=== PATIENT | male | born 1935 | race Caucasian/White ===

== ENCOUNTER 2016-10-29 09:00 | Outpatient (RCR) | payer OTHER ==
[2014-10-26 09:23] VITALS: BP 140/87
[~2016-10-29 09:00] MED LIST: ACLOVATE OINT 015 G1 TP; AMLODIPINE5 MG PO; AQUAZIDE H50 MG PO; ENALAPRIL20 MG PO; FLOMAX 0.40.4 MG/CAP PO; FLONASE0.05 MG/AC NS; LEVOTHYROXINE0.05 MG PO; LOTRISONE 0.05%1 CRE TP; MOBIC15 MG PO; TYLENOL 500MG500 MG PO; VESICARE PO; VIAGRA100 MG PO; VITAMIN B11000 MCG/M IM; [UNRECOGNIZED DRUG - OTHER] PO
[2016-12-28] MEDS ORDERED: ASPIR LOW81 MG PO (08:00)
[2016-12-28] MEDS ORDERED: ZEBETA10 MG PO (08:01)
[2016-12-28] MEDS ORDERED: COZAAR100 MG PO (08:03)
[2016-12-28] MEDS ORDERED: TIAZAC240 M1 PO (08:03)
[2016-12-28] MEDS ORDERED: CELEXA 20MG20 MG/TA1 PO (08:04)
[2016-12-28] MEDS ORDERED: HCTZ 25MG25 MG PO (08:05)
== END 2016-11-09 11:35 | disposition home or self-care (01) ==
LOC: PT 09:00
DX: M75.31 Calcific tendinitis of right shoulder (principal)

== ENCOUNTER → 2016-11-10 | Outpatient (CLI) | payer OTHER ==
[~2016-11-10] MED LIST changes: +ASPIR LOW81 MG PO; +CELEXA 20MG20 MG/TA1 PO; +COZAAR100 MG PO; +HCTZ 25MG25 MG PO; +TIAZAC240 M1 PO; +ZEBETA10 MG PO
== END ==
LOC: LAB 11:40
DX: G70.00 Myasthenia gravis without (acute) exacerbation (principal); R53.81 Other malaise

== ENCOUNTER → 2016-11-25 | Outpatient (CLI) | payer OTHER | LOC: LAB 09:28 | DX: N39.41 Urge incontinence (principal); N41.0 Acute prostatitis ==

== ENCOUNTER 2016-12-28 08:24 | Emergency (ER) | payer OTHER | END 2016-12-28 09:04 | disposition home or self-care (01) | LOC: ED 08:24 | DX: S00.81XA Abrasion of other part of head, initial encounter (principal); S61.411A Laceration without foreign body of right hand, initial encounter; W18.09XA Striking against other object with subsequent fall, initial encounter; Y92.018 Other place in single-family (private) house as the place of occurrence of the external cause | CPT/HCPCS: A4550 ==

== ENCOUNTER → 2017-01-04 | Day surgery (SDC) | payer OTHER | LOC: MSO 06:55 | DX: Z12.11 Encounter for screening for malignant neoplasm of colon (principal); K92.1 Melena; K29.60 Other gastritis without bleeding; D12.2 Benign neoplasm of ascending colon; K57.30 Diverticulosis of large intestine without perforation or abscess without bleeding; K44.9 Diaphragmatic hernia without obstruction or gangrene | CPT/HCPCS: 00810; A4649; J7120 ==

== ENCOUNTER → 2017-01-21 | Outpatient (CLI) | payer OTHER | LOC: RAD 09:49 | DX: R06.02 Shortness of breath (principal); G70.00 Myasthenia gravis without (acute) exacerbation | CPT/HCPCS: Q9967 ==

== ENCOUNTER → 2017-03-26 | Outpatient (CLI) | payer OTHER ==
[2016-12-28 09:11] VITALS: BP 144/81
== END ==
LOC: RAD 12:00
DX: N39.41 Urge incontinence (principal); R41.3 Other amnesia; R27.0 Ataxia, unspecified; R06.09 Other forms of dyspnea; I25.10 Atherosclerotic heart disease of native coronary artery without angina pectoris
CPT/HCPCS: Q9967

== ENCOUNTER → 2017-04-06 | Outpatient (CLI) | payer OTHER ==
[2016-12-28 09:11] VITALS: BP 144/81
== END ==
LOC: RAD 09:08
DX: Z13.820 Encounter for screening for osteoporosis (principal); M85.852 Other specified disorders of bone density and structure, left thigh; M85.851 Other specified disorders of bone density and structure, right thigh

== ENCOUNTER → 2017-04-16 | Outpatient (CLI) | payer OTHER ==
[2016-12-28 09:11] VITALS: BP 144/81
== END ==
LOC: LAB 11:38
DX: R20.2 Paresthesia of skin (principal)

== ENCOUNTER 2017-04-29 09:00 | Outpatient (RCR) | payer OTHER ==
[2016-12-28 09:11] VITALS: BP 144/81
== END 2017-04-29 14:00 | disposition home or self-care (01) ==
LOC: PT 09:00
DX: G60.9 Hereditary and idiopathic neuropathy, unspecified (principal); R29.6 Repeated falls; R26.89 Other abnormalities of gait and mobility; M62.81 Muscle weakness (generalized)

== ENCOUNTER → 2017-05-10 | Outpatient (CLI) | payer OTHER ==
[2016-12-28 09:11] VITALS: BP 144/81
== END ==
LOC: LAB 14:12
DX: N30.00 Acute cystitis without hematuria (principal)

== ENCOUNTER → 2017-11-09 | Outpatient (CLI) | payer OTHER ==
[2016-12-28 09:11] VITALS: BP 144/81
[2017-11-09 08:47] LABS: HEMATOCRIT 40.2 % (42.0-52.0); HEMOGLOBIN 12.4 g/dL (13.5-18.0); MEAN CELL VOLUME 90 fl (78-100); MEAN CORPUSCULAR HEMOGLOBIN 28 pg (27-31); MEAN CORPUSCULAR HGB CONC 31 g/dL (33-37); PLATELET COUNT 247 K/mm3 (130-400); RED BLOOD COUNT 4.49 M/mm3 (4.20-5.60); RED CELL DISTRIBUTION WIDTH 14.9 % (11.5-14.5); WHITE BLOOD COUNT 5.7 K/mm3 (4.8-10.8)
[2017-11-09 09:11] LABS: ALBUMIN 3.8 g/dL (3.5-5.0); BUN/CREATININE RATIO 29.1 (6.0-26.0); POTASSIUM 3.6 mmol/L (3.6-5.0); TOTAL BILIRUBIN 0.9 mg/dL (0.2-1.3); TOTAL PROTEIN 6.5 g/dL (6.3-8.2)
[2017-11-09 09:12] LABS: LYMPHOCYTE 24 % (20-51); NEUTROPHILS 62 % (42-75)
[2017-11-09 09:13] LABS: MONOCYTE 10 % (3-10)
[2017-11-09 09:52] LABS: ERYTHROCYTE SEDIMENTATION RATE 7 mm/hr (0-20)
[2017-11-10 00:25] LABS: TESTOSTERONE 593 ng/dL (221-716)
== END ==
LOC: LAB 08:32
PROVIDERS: Internal Medicine
DX: D51.0 Vitamin B12 deficiency anemia due to intrinsic factor deficiency (principal); C61 Malignant neoplasm of prostate; I25.10 Atherosclerotic heart disease of native coronary artery without angina pectoris; N52.9 Male erectile dysfunction, unspecified; E03.4 Atrophy of thyroid (acquired); E53.8 Deficiency of other specified B group vitamins

== ENCOUNTER → 2018-09-29 | Outpatient (CLI) | payer OTHER ==
[2016-12-28 09:11] VITALS: BP 144/81
[2018-09-29 11:58] LABS: HEMATOCRIT 37.8 % (42.0-52.0); HEMOGLOBIN 11.7 g/dL (13.5-18.0); MEAN CELL VOLUME 85 fl (78-100); MEAN CORPUSCULAR HEMOGLOBIN 26 pg (27-31); MEAN CORPUSCULAR HGB CONC 31 g/dL (33-37); MEAN PLATELET VOLUME 10.8 fl (7.4-10.4); PLATELET COUNT 296 K/mm3 (130-400); RED BLOOD COUNT 4.44 M/mm3 (4.20-5.60); RED CELL DISTRIBUTION WIDTH 15.1 % (11.5-14.5); WHITE BLOOD COUNT 10.4 K/mm3 (4.8-10.8)
[2018-09-29 12:12] LABS: CALCIUM 9.1 mg/dL (8.4-10.2); POTASSIUM 3.8 mmol/L (3.6-5.0); TOTAL BILIRUBIN 0.8 mg/dL (0.2-1.3); TOTAL PROTEIN 6.6 g/dL (6.3-8.2)
[2018-09-29 14:29] LABS: LYMPHOCYTE 13 % (20-51); MONOCYTE 10 % (3-10); NEUTROPHILS 74 % (42-75)
[2018-09-29 14:32] LABS: ERYTHROCYTE SEDIMENTATION RATE 8 mm/hr (0-20)
[2018-09-30 01:32] LABS: TESTOSTERONE 580 ng/dL (221-716)
== END ==
LOC: LAB 11:22
PROVIDERS: Internal Medicine
DX: Z12.11 Encounter for screening for malignant neoplasm of colon (principal); Z00.00 Encounter for general adult medical examination without abnormal findings

== ENCOUNTER → 2018-10-10 | Outpatient (CLI) | payer OTHER ==
[2016-12-28 09:11] VITALS: BP 144/81
== END ==
LOC: LAB 11:13
DX: Z12.11 Encounter for screening for malignant neoplasm of colon (principal); Z00.00 Encounter for general adult medical examination without abnormal findings

== ENCOUNTER → 2018-11-17 | Outpatient (CLI) | payer OTHER ==
[2016-12-28 09:11] VITALS: BP 144/81
== END ==
LOC: RAD 10:38
DX: M16.0 Bilateral primary osteoarthritis of hip (principal)

== ENCOUNTER 2019-01-12 09:30 | Outpatient (RCR) | payer OTHER ==
[2016-12-28 09:11] VITALS: BP 144/81
== END 2019-01-12 10:00 | disposition home or self-care (01) ==
LOC: PT 09:30
DX: M16.0 Bilateral primary osteoarthritis of hip (principal)

== ENCOUNTER → 2019-05-12 | Outpatient (CLI) | payer MEDICARE, OTHER ==
[2016-12-28 09:11] VITALS: BP 144/81
[2019-05-12 11:25] LABS: POTASSIUM 4.2 mmol/L (3.5-5.1)
[2019-05-12 11:26] LABS: ALBUMIN 3.9 g/dL (3.4-4.8)
[2019-05-12 11:27] LABS: CALCIUM 9.6 mg/dL (8.3-10.5)
[2019-05-12 11:28] LABS: TOTAL PROTEIN 6.8 g/dL (6.2-8.1)
[2019-05-12 11:30] LABS: TOTAL BILIRUBIN 0.8 mg/dL (0.2-1.2)
[2019-05-12 11:46] LABS: HEMATOCRIT 40.5 % (42.0-52.0); HEMOGLOBIN 12.4 g/dL (13.5-18.0); MEAN CELL VOLUME 88 fl (78-100); MEAN CORPUSCULAR HEMOGLOBIN 27 pg (27-31); MEAN CORPUSCULAR HGB CONC 31 g/dL (33-37); MEAN PLATELET VOLUME 10.5 fl (7.4-10.4); PLATELET COUNT 277 K/mm3 (130-400); RED BLOOD COUNT 4.61 M/mm3 (4.20-5.60); RED CELL DISTRIBUTION WIDTH 17.1 % (11.5-14.5)
[2019-05-12 12:18] LABS: LYMPHOCYTE 13 % (20-51); MONOCYTE 12 % (3-10); NEUTROPHILS 71 % (42-75)
[2019-05-12 22:57] LABS: TESTOSTERONE 341 ng/dL (221-716)
== END ==
LOC: LAB 11:07
PROVIDERS: Internal Medicine
DX: E03.9 Hypothyroidism, unspecified (principal); D51.0 Vitamin B12 deficiency anemia due to intrinsic factor deficiency; I25.10 Atherosclerotic heart disease of native coronary artery without angina pectoris; C61 Malignant neoplasm of prostate; N52.9 Male erectile dysfunction, unspecified

== ENCOUNTER → 2019-05-18 | Outpatient (CLI) | payer MEDICARE, OTHER ==
[2016-12-28 09:11] VITALS: BP 144/81
== END ==
LOC: LAB 12:48
DX: Z00.00 Encounter for general adult medical examination without abnormal findings (principal); Z12.11 Encounter for screening for malignant neoplasm of colon

== ENCOUNTER → 2019-06-16 | Outpatient (CLI) | payer MEDICARE, OTHER ==
[2016-12-28 09:11] VITALS: BP 144/81
== END ==
LOC: RAD 15:50
DX: M47.817 Spondylosis without myelopathy or radiculopathy, lumbosacral region (principal); M43.17 Spondylolisthesis, lumbosacral region; I25.10 Atherosclerotic heart disease of native coronary artery without angina pectoris

== ENCOUNTER → 2019-07-07 | Outpatient (CLI) | payer MEDICARE, OTHER ==
[2016-12-28 09:11] VITALS: BP 144/81
[2019-07-07 10:50] LABS: POTASSIUM 3.5 mmol/L (3.5-5.1)
[2019-07-07 10:51] LABS: CALCIUM 9.3 mg/dL (8.3-10.5)
[2019-07-07 10:52] LABS: TOTAL PROTEIN 6.4 g/dL (6.2-8.1)
[2019-07-07 10:54] LABS: TOTAL BILIRUBIN 0.9 mg/dL (0.2-1.2)
[2019-07-07 12:23] LABS: HEMATOCRIT 46.7 % (42.0-52.0); HEMOGLOBIN 15.2 g/dL (13.5-18.0); MEAN CELL VOLUME 92 fl (78-100); MEAN CORPUSCULAR HEMOGLOBIN 30 pg (27-31); MEAN CORPUSCULAR HGB CONC 33 g/dL (33-37); MEAN PLATELET VOLUME 11.2 fl (7.4-10.4); PLATELET COUNT 218 K/mm3 (130-400); RED BLOOD COUNT 5.07 M/mm3 (4.20-5.60); WHITE BLOOD COUNT 8.9 K/mm3 (4.8-10.8)
[2019-07-07 12:36] LABS: LYMPHOCYTE 13 % (20-51); MONOCYTE 14 % (3-10); NEUTROPHILS 69 % (42-75)
== END ==
LOC: RAD 10:01
PROVIDERS: Internal Medicine
DX: Z00.00 Encounter for general adult medical examination without abnormal findings (principal); R51 Headache; R55 Syncope and collapse

== ENCOUNTER → 2019-07-10 | Outpatient (CLI) | payer MEDICARE, OTHER ==
[2016-12-28 09:11] VITALS: BP 144/81
== END ==
LOC: RAD 15:26
DX: I65.23 Occlusion and stenosis of bilateral carotid arteries (principal); R55 Syncope and collapse

== ENCOUNTER 2019-07-20 12:48 | Outpatient (RCR) | payer MEDICARE, OTHER ==
[2016-12-28 09:11] VITALS: BP 144/81
== END 2019-07-20 13:15 | disposition home or self-care (01) ==
LOC: PT 12:48
DX: M47.816 Spondylosis without myelopathy or radiculopathy, lumbar region (principal); M25.552 Pain in left hip

== ENCOUNTER → 2019-07-31 | Outpatient (CLI) | payer MEDICARE, OTHER ==
[2016-12-28 09:11] VITALS: BP 144/81
== END ==
LOC: LAB 09:03
DX: D64.9 Anemia, unspecified (principal)

== ENCOUNTER → 2019-11-10 | Outpatient (CLI) | payer MEDICARE, OTHER ==
[2016-12-28 09:11] VITALS: BP 144/81
[2019-11-10 10:22] LABS: BASO # 0.1 (0.02-0.10); EOS # 0.3 (0.04-0.40); HEMATOCRIT 46.9 % (42.0-52.0); HEMOGLOBIN 15.7 g/dL (13.5-18.0); LYMPH# 1.4 (1.50-4.00); MEAN CELL VOLUME 98 fl (78-100); MEAN CORPUSCULAR HEMOGLOBIN 33 pg (27-31); MEAN CORPUSCULAR HGB CONC 34 g/dL (33-37); MEAN PLATELET VOLUME 10.7 fl (7.4-10.4); MONO # 0.9 (0.20-0.80); NEU # 5.3 (1.40-6.50); PLATELET COUNT 225 K/mm3 (130-400); RED BLOOD COUNT 4.78 M/mm3 (4.20-5.60); RED CELL DISTRIBUTION WIDTH 13.1 % (11.5-14.5); WHITE BLOOD COUNT 8.1 K/mm3 (4.8-10.8)
[2019-11-10 10:27] LABS: POTASSIUM 3.6 mmol/L (3.5-5.1)
[2019-11-10 10:28] LABS: CALCIUM 9.4 mg/dL (8.3-10.5)
[2019-11-10 10:29] LABS: TOTAL PROTEIN 6.6 g/dL (6.2-8.1)
[2019-11-10 10:31] LABS: TOTAL BILIRUBIN 1.6 mg/dL (0.2-1.2)
[2019-11-10 10:36] LABS: MAGNESIUM 1.63 mg/dL (1.60-2.60)
[2019-11-10 11:30] LABS: ERYTHROCYTE SEDIMENTATION RATE 5 mm/hr (0-20)
[2019-11-10 21:05] LABS: TESTOSTERONE 492 ng/dL (221-716)
== END ==
LOC: LAB 09:24
PROVIDERS: Internal Medicine
DX: Z00.00 Encounter for general adult medical examination without abnormal findings (principal); Z12.11 Encounter for screening for malignant neoplasm of colon; I10 Essential (primary) hypertension; D64.9 Anemia, unspecified; I25.10 Atherosclerotic heart disease of native coronary artery without angina pectoris; E03.9 Hypothyroidism, unspecified; E53.8 Deficiency of other specified B group vitamins

== ENCOUNTER → 2020-03-14 | Outpatient (CLI) | payer MEDICARE, OTHER ==
[2016-12-28 09:11] VITALS: BP 144/81
[2020-03-14 09:45] LABS: MEAN CELL VOLUME 98 fl (78-100); MEAN CORPUSCULAR HEMOGLOBIN 33 pg (27-31); MEAN CORPUSCULAR HGB CONC 33 g/dL (33-37); MEAN PLATELET VOLUME 10.4 fl (7.4-10.4); PLATELET COUNT 201 K/mm3 (130-400); RED BLOOD COUNT 4.58 M/mm3 (4.20-5.60); RED CELL DISTRIBUTION WIDTH 13.6 % (11.5-14.5); WHITE BLOOD COUNT 7.3 K/mm3 (4.8-10.8)
[2020-03-14 10:01] LABS: POTASSIUM 3.9 mmol/L (3.5-5.1)
[2020-03-14 10:02] LABS: ALBUMIN 3.8 g/dL (3.4-4.8)
[2020-03-14 10:03] LABS: CALCIUM 9.1 mg/dL (8.3-10.5)
[2020-03-14 10:04] LABS: TOTAL PROTEIN 6.4 g/dL (6.2-8.1)
[2020-03-14 10:06] LABS: TOTAL BILIRUBIN 0.9 mg/dL (0.2-1.2)
[2020-03-14 10:11] LABS: MAGNESIUM 2.03 mg/dL (1.60-2.60)
[2020-03-14 10:46] LABS: LYMPHOCYTE 16 % (20-51); MONOCYTE 10 % (3-10); NEUTROPHILS 71 % (42-75)
[2020-03-14 10:48] LABS: ERYTHROCYTE SEDIMENTATION RATE 5 mm/hr (0-20)
[2020-03-14 22:13] LABS: TESTOSTERONE 497 ng/dL (221-716)
== END ==
LOC: LAB 09:14
PROVIDERS: Internal Medicine
DX: Z00.00 Encounter for general adult medical examination without abnormal findings (principal); I25.10 Atherosclerotic heart disease of native coronary artery without angina pectoris; D64.9 Anemia, unspecified; I10 Essential (primary) hypertension; E03.9 Hypothyroidism, unspecified; E53.8 Deficiency of other specified B group vitamins